=== PATIENT | female | born 1960 | race Two or more races ===

== ENCOUNTER 2016-12-15 11:01 | Emergency (ER) | payer OTHER ==
--- NOTE | ~2016-12-15 | CR133 ---
[facility] A Service of [facility] RADIOLOGY TEXT RESULTS PATIENT: RAMO GONZALEZ LOCATION: SED : 60 UNIT #: [id number] AGE: [address]: JANNIE BUI SEX: F ORDER DR: [id number] [place] [id number] E MR#: [id number] Acc #: [id number] NAME: RAMO GONZALEZ : 1960 SEX: F STUDY DATE/TIME: 12/15/2016 11:22 UNIT: SED ROOM: STUDY DESCRIPTION: CR Forearm 2 View Rt Attending Physician: Jannie Bui Ordering Physician: Jannie Bui Primary Care Physician: Ama Haile M.D. MEDICAL IMAGING REPORT This report is preliminary unless electronic signature is present. EXAM Right forearm 12/15/2016 1122 hours HISTORY 56-year-old woman who fell while walking on steps last night. Forearm and wrist pain since fall. COMPARISON None FINDINGS AP and lateral views of the forearm again demonstrate the comminuted fracture of the distal radius with impaction. There is a small ulnar styloid fracture, as well. This is better demonstrated on today's wrist film. The proximal radius and ulna are intact. No elbow joint effusion is seen. IMPRESSION Again demonstrated is the acute transverse comminuted slightly impacted fracture, distal radius, with ulnar styloid fracture better demonstrated on today's wrist films. No proximal fracture of the radius or ulna is seen. STAT * RESULT Dictated by... Ghada Toussaint M.D. THIS IS AN ELECTRONICALLY VERIFIED REPORT Ghada Toussaint M.D. at 12/15/2016 2:29 PM [facility] A Service of [facility] RADIOLOGY TEXT RESULTS PATIENT: RAMO GONZALEZ LOCATION: SED : 60 UNIT #: [id number] AGE: [address]: JANNIE BUI SEX: F ORDER DR: Tigist TD: 12/15/2016 12:01 JOB #: [id number] MEDICAL IMAGING REPORT Page 1 of 1
--- NOTE | ~2016-12-15 | CR282 ---
[facility] A Service of [facility] RADIOLOGY TEXT RESULTS PATIENT: RAMO GONZALEZ LOCATION: SED : 60 UNIT #: [id number] AGE: [address]: JANNIE BUI SEX: F ORDER DR: [id number] [place] [id number] E MR#: [id number] Acc #: [id number] NAME: RAMO GONZALEZ : 1960 SEX: F STUDY DATE/TIME: 12/15/2016 11:22 UNIT: SED ROOM: STUDY DESCRIPTION: CR Wrist Min 3 View Rt Attending Physician: Jannie Bui Ordering Physician: Dorian Lanza M.D. Primary Care Physician: Ama Haile M.D. MEDICAL IMAGING REPORT This report is preliminary unless electronic signature is present. EXAM Right wrist, 3 views, 12/15/2016, 1122 hours. CLINICAL HISTORY 56-year-old woman who fell last night while walking on steps. Forearm and wrist pain since fall. COMPARISON Forearm film, 12/15/2016. FINDINGS AP, lateral, and oblique views demonstrate an acute, closed, mildly comminuted impacted fracture of the distal radius without definite intraarticular extension. There is a small ulnar styloid fracture. The carpal bones are intact. IMPRESSION There is an acute mildly comminuted closed fracture of the distal radius. This is a transverse fracture with impaction. No definite extension to or disruption of the articular surface of the distal radius is demonstrated. There is a small associated ulnar styloid fracture. STAT * RESULT Dictated by... Ghada Toussaint M.D. THIS IS AN ELECTRONICALLY VERIFIED REPORT Ghada Toussaint M.D. at 12/15/2016 2:29 PM SMM/tmw [facility] A Service of [facility] RADIOLOGY TEXT RESULTS PATIENT: RAMO GONZALEZ LOCATION: SED : 60 UNIT #: [id number] AGE: [address]: JANNIE BUI SEX: F ORDER DR: TD: 12/15/2016 11:59 JOB #: [id number] MEDICAL IMAGING REPORT Page 1 of 1
[~2016-12-15 11:01] MED LIST: AMARYL PO; FLECTOR1 EACH TP; FLUCONAZOLE150 MG PO; HYDROCODON-ACE1 EAC1 PO; KEFLEX PO; LEVAQUIN PO; LIPITOR20 MG PO; METFORMIN HCL500 M1 PO; NAPROSYN250 M1 PO; PERCOCET 5/321 UDTAB PO; PREDNISONE10 MG/DOSE PO; SYMBICORT INH; TESSALON200 MG PO
[2016-12-15] MEDS ORDERED: NO MEDICATIONS (11:08)
== END 2016-12-15 13:32 | disposition home or self-care (01) ==
LOC: SED 11:01
DX: S52.501A Unspecified fracture of the lower end of right radius, initial encounter for closed fracture (principal); S52.611A Displaced fracture of right ulna styloid process, initial encounter for closed fracture; F17.210 Nicotine dependence, cigarettes, uncomplicated; W10.9XXA Fall (on) (from) unspecified stairs and steps, initial encounter; Y92.009 Unspecified place in unspecified non-institutional (private) residence as the place of occurrence of the external cause
CPT/HCPCS: 29125; 73090; 73110; 99283